=== PATIENT | male | born 1950 | race Caucasian/White ===

== ENCOUNTER 2018-03-18 16:54 | Emergency (ER) | payer OTHER ==
[2018-03-18 17:10] VITALS: BP 186/114
[2018-03-18] MEDS ORDERED: Levofloxacin TAB* 500 MG PO ONE (18:04)
--- NOTE | 2018-03-23 10:03 | UC ---
Complaint Male HPI - HPI Summary HPI Summary: c/o urinary frequency and urgency since yesterday with mild left scrotal pain after urination. Denies flank pain or fever, denies PMH of urolithiasis or prostatism. States he has usual nicturia about twice a night and before yesterday there was no urgency or burning. Denies penile discharge or recent intercourse - History of Current Complaint Chief Complaint: UCGU Stated Complaint: PAIN W/ URINATION Time Seen by Provider: 03/18/18 17:03 Hx Obtained From: Patient Onset/Duration: Sudden Onset, Lasting Days Timing: Constant Severity Initially: Mild Severity Currently: Mild Pain Intensity: 3 Pain Scale Used: 0-10 Numeric Location: Suprapubic Character: Burning Aggravating Factor(s): Voiding Alleviating Factor(s): Nothing Associated Signs And Symptoms: Positive: Negative - Risk Factors Testicular Torsion: Negative - Allergies/Home Medications Allergies/Adverse Reactions: Allergies Allergy/AdvReac Type Severity Reaction Status Date / Time atorvastatin [From Lipitor] Allergy Muscle Ache Verified 03/18/18 17:21 codeine Allergy Agitation Verified 03/18/18 17:21 ezetimibe [From Vytorin] Allergy See Comment Verified 03/18/18 17:21 fenofibrate [From Tricor] Allergy Muscle Ache Verified 03/18/18 17:21 hydrocodone Allergy Agitation Verified 03/18/18 17:21 Penicillins Allergy Stomach Verified 03/18/18 17:21 Cramps quinapril [From Accupril] Allergy Coughing Verified 03/18/18 17:21 rosuvastatin [From Crestor] Allergy Muscle Ache Verified 03/18/18 17:21 simvastatin [From Vytorin] Allergy See Comment Verified 03/18/18 17:21 PMH/Surg Hx/FS Hx/Imm Hx Previously Healthy: Yes Endocrine History: Dyslipidemia Cardiovascular History: Cardiac Disease, Hypertension - Surgical History Surgical History: Yes Surgery Procedure, Year, and Place: PTCA WITH FOUR STENTS - Family History Known Family History: Positive: Cardiac Disease, Hypertension - Social History Alcohol Use: Weekly Alcohol Amount: 2x Substance Use Type: None Smoking Status (MU): Former Smoker Type: Cigarettes Household Exposure Type: Cigarettes Review of Systems Constitutional: Negative Genitourinary: Dysuria, Frequency, Urgency All Other Systems Reviewed And Are Negative: Yes Physical Exam Triage Information Reviewed: Yes Appearance: Well-Appearing, No Pain Distress, Well-Nourished Vital Signs: Initial Vital Signs Temp 98.6 F 03/18/18 17:04 Pulse 74 03/18/18 17:04 Resp 16 03/18/18 17:04 BP 186/114 03/18/18 17:04 Pulse Ox 98 03/18/18 17:04 Vital Signs Reviewed: Yes Eyes: Positive: Conjunctiva Clear ENT: Positive: Hearing grossly normal, Pharynx normal Neck: Positive: Supple, Nontender, No Lymphadenopathy Respiratory: Positive: Chest non-tender, Lungs clear, Normal breath sounds, No respiratory distress Cardiovascular: Positive: RRR, No Murmur, Pulses Normal Abdomen Description: Positive: Nontender, No Organomegaly, Soft, Bruit Bowel Sounds: Positive: Present Male Genital Exam: Positive: Normal Genitalia, Normal Prostate, No Hernia Musculoskeletal: Positive: Strength Intact, ROM Intact, No Edema Complaint Male Course/Dx - Course Course Of Treatment: UTI, start levaquin as prescribed, continue oral hydration , follow up with urine culture, follow PCP in 2 weeks. HTN on medications, was asymptomatic for LIANG, dizziness, SOB, CP or palpitations, continue medications as previously prescriber. - Differential Dx/Diagnosis Provider Diagnoses: UTI. HTN Discharge - Sign-Out/Discharge Documenting (check all that apply): Discharge/Admit/Transfer - Discharge Plan Condition: Stable Disposition: HOME Prescriptions: Levofloxacin TAB* [Levaquin TAB*] 500 mg PO DAILY #7 tab Patient Education Materials: Levofloxacin (By mouth), Urinary Tract Infection in Men (ED) Referrals: Med Wilburn MD [Primary Care Provider] - - Billing Disposition and Condition Condition: STABLE Disposition: HOME
== END 2018-03-18 18:15 | disposition home or self-care (01) ==
LOC: UCEAST 16:54
DX: N39.0 Urinary tract infection, site not specified (principal); I10 Essential (primary) hypertension; Z88.5 Allergy status to narcotic agent; Z88.0 Allergy status to penicillin; Z88.8 Allergy status to other drugs, medicaments and biological substances; E78.5 Hyperlipidemia, unspecified; I11.9 Hypertensive heart disease without heart failure; Z87.891 Personal history of nicotine dependence
CPT/HCPCS: 81003; 87086; 99212; G0463

== ENCOUNTER 2018-04-02 09:16 | Day surgery (SDC) | payer OTHER ==
--- NOTE | 2018-03-30 12:28 | HP ---
CC: Dr. Med Wilburn; Dr. Jodi Shultz; Dr. Pederson ADMITTING HISTORY AND PHYSICAL: DATE OF ADMISSION: 04/02/18 ADMITTING DIAGNOSES: 1. Left hydronephrosis. 2. Obstructing calculus, left proximal ureter. PLANNED PROCEDURE: Left retrograde, left stent insertion, possible ureteroscopy (to be followed in n ear future by lithotripsy). SURGEON: Dr. Pederson. ADMITTING HISTORY AND PHYSICAL: Luciano Simon is a 67-year-old gentleman who has had discomfort i n the left groin area for the last month. He had been evaluated at the [facility] and [place] d been treated for presumed urinary tract infection, although the urine culture was negative. He has a history of renal calculi and because of the somewhat atypical symptoms and history of renal calcul i, I suspected referred pain secondary to a calculus in the ureter. Renal sonogram was obtained, whi ch revealed moderate left hydronephrosis with a fairly large approximately 10 mm calculus in the prox imal left ureter. He is now being brought in for left stent insertion to be followed at some point i n the near future by lithotripsy (may need to be off anticoagulants prior to lithotripsy depending on eventual location of the calculus). PAST MEDICAL HISTORY: Significant for: 1. Coronary artery disease (status post 4 coronary stents placed). 2. Renal calculi. 3. Hypertension. PAST SURGICAL HISTORY: Significant for left inguinal hernia repair and right ureteroscopy and laser in 2011. MEDICATIONS ON ADMISSION: 1. Metoprolol 50 mg twice a day. 2. Valsartan one tablet daily. 3. Praluent 75 mg a day. 4. Vitamin B12 1000 mcg a day. 5. Vitamin D3 2000 mcg a day. 6. Fish oil 120 mg daily. 7. Aspirin 81 mg a day. ALLERGIES AND INTOLERANCES: CODEINE, VICODIN, and certain STATIN, (PENICILLIN is listed as an allerg y but only causes stomach cramps, so not a true allergy). SOCIAL HISTORY: Smoking history; he is a former smoker who quit in 2006 with a 30- pack-year smoking history prior to that. REVIEW OF SYSTEMS: He denies any chest pain or shortness of breath. There is no history of diabetes mellitus or any other major systemic illness. PHYSICAL EXAMINATION GENERAL: Reveals a pleasant, mildly uncomfortable-appearing middle-aged gentleman. VITAL SIGNS: Blood pressure is 144/86, pulse 77 per minute and regular, temperature 96.7, oxygen sat uration 99% on room air. LUNGS: Clear bilaterally. CARDIOVASCULAR: Regular rate and rhythm. S1, S2. ABDOMEN: Soft with mild left flank tenderness. RECTAL: Testicles are descended bilaterally and are normal with a left varicocele noted. IMPRESSION: I reviewed the imaging studies and had a detailed discussion with Mr. Aurora malcolm ng the diagnosis of an obstructing left proximal ureteral calculus. The plan is for urgent left sten t insertion in the next few days to be followed by shock wave lithotripsy in the near future. [id number]/[facility] #: [id number]
[~2018-04-02 09:16] MED LIST: Buffered Lidocaine 0.9% SYRIN* 5 ML/SYR SYRINGE INTRADERM ONE
[2018-04-02] MEDS ORDERED: Buffered Lidocaine 0.9% SYRIN* 5 ML/SYR SYRINGE ONE (09:42)
[2018-04-02] MEDS ORDERED: Levofloxacin 500 MG IVPREMIX(* 500 MG/100 ML BAG IVPB ONE (10:03)
[2018-04-02] MEDS ORDERED: Famotidine IV* 10 MG/ML 2 ML (20 mg) ONE (10:09)
[2018-04-02] MEDS ORDERED: fentaNYL* 50 MCG/ML 2 ML VIAL (100 MCG VIAL) IV PRN (10:33)
[2018-04-02] MEDS ORDERED: HYDROmorphone INJ* 1 MG/ML CARPUJECT SYRINGE IV PRN (10:33)
[2018-04-02] MEDS ORDERED: Acetaminophen TAB* 325 MG PO PRN (10:33)
[2018-04-02] MEDS ORDERED: Ondansetron INJ* 2 MG/ML VIAL IV PRN (10:33)
[2018-04-02] MEDS ORDERED: Naloxone* 0.4 MG/ML 1 ML VIAL IV PRN (10:33)
[2018-04-02] MEDS ORDERED: Ibuprofen TAB* 600 MG PO PRN (10:33)
[2018-04-02] MEDS ORDERED: Propofol* 10 MG/ML 20 ML BTL IV PUSH ONE (10:35)
[2018-04-02] MEDS ORDERED: Lidocaine 2% PF * 5 ML VIAL ONE (10:35)
[2018-04-02] MEDS ORDERED: fentaNYL* 50 MCG/ML 2 ML VIAL (100 MCG VIAL) ONE (10:36)
[2018-04-02] MEDS ORDERED: Midazolam* 1 MG/ML 2 ML VIAL (2 MG) ONE (10:36)
[2018-04-02] MEDS ORDERED: Iohexol 180 (CONTRAST) 10 ML SDV IV ONE (11:52)
[2018-04-02] MEDS ORDERED: Ketorolac INJ* 30 MG/ML 1 ML VIAL ONE (12:11)
[2018-04-02] MEDS ORDERED: Tamsulosin CAP* 0.4 MG ONE (13:45)
[2018-04-02] MEDS ORDERED: hydrALAZINE IV* 20 MG/ML VIAL ONE (14:01)
--- NOTE | 2018-04-02 14:08 | RAD ---
INDICATION: Left ureteral stent insertion COMPARISONS: None relevant TECHNIQUE: Fluoroscopy was provided for a retrograde pyelogram and stent placement. Total fluoroscopy time is: 8 seconds FINDINGS: Spot images symmetric contrast within the renal collecting system, which is dilated. A ureteral stent is noted. IMPRESSION: FLUOROSCOPY WAS PROVIDED FOR A RETROGRADE PYELOGRAM AND STENT PLACEMENT CPT II Codes: G9500
[2018-04-02 14:53] VITALS: BP 169/99
--- NOTE | 2018-04-02 15:47 | RAD ---
INDICATION: Postoperative COMPARISON: Retrograde pyelogram April 02, 2018 TECHNIQUE: A single view of the abdomen is submitted. FINDINGS: Bones: There are no acute bony findings. Soft tissues: The soft tissues appear normal. The psoas margins are sharp. Bowel gas pattern: Normal Calcifications: 1.3 cm calcination pulmonary proximal course of the left ureteral stent. There are multiple phleboliths. Other: Left ureteral stent in expected position. IMPRESSION: PROXIMAL LEFT URETERAL CALCULUS. LEFT URETERAL STENT.
--- NOTE | 2018-04-03 08:46 | OP ---
CC: Dr. Med Wilburn * DATE OF OPERATION: 04/02/18 - [facility] DATE OF : 54 SURGEON: Saúl Pederson MD ANESTHESIOLOGIST: Dawn Guillen MD ANESTHESIA: General. PRE-OP DIAGNOSES: 1. Left hydronephrosis. 2. Calculus, left proximal ureter. POST-OP DIAGNOSES: 1. Left hydronephrosis. 2. Calculus, left proximal ureter. OPERATIVE PROCEDURE: Cystoscopy, left retrograde pyelogram, left ureteral calculus manipulation, and left stent insertion. INDICATIONS: Luciano Simon is a 67-year-old gentleman, who was evaluated for an obstructing calculus in the left proximal ureter. He is being brought in for left stent insertion to be followed in the near future by lithotripsy. COMPLICATIONS: None. STENT USED: 6-American stent, left ureter. POSTOPERATIVE CONDITION: Stable. DESCRIPTION OF PROCEDURE: After induction of general anesthesia, the patient was placed in dorsal lithotomy position. Sequential compression devices were in place and functioning. Initial cystoscopy revealed a normal-appearing urethra, a mildly enlarged prostate, and a normal-appearing bladder. A guidewire was introduced into the left ureter. Retrograde pyelogram revealed left hydronephrosis. The calculus could be seen at the level of the mid to proximal left ureter and an open-ended catheter was advanced and the ureter was found to be fairly narrow. The open-ended catheter was advanced to the level of the calculus and after the calculus was manipulated proximally, the open- ended catheter could then be advanced into the proximal collecting system. A 6- American stent was then introduced and positioned under fluoroscopy with good proximal and distal positioning obtained. The bladder was emptied. The patient tolerated the procedure satisfactorily and was transferred back to the recovery area in stable condition. [id number]/[facility] #: [id number] MTDD
== END 2018-04-02 15:13 | disposition home or self-care (01) ==
LOC: OR 09:16
PROVIDERS: ATTEND Urology
DX: N13.2 Hydronephrosis with renal and ureteral calculous obstruction (principal); I25.10 Atherosclerotic heart disease of native coronary artery without angina pectoris; Z95.5 Presence of coronary angioplasty implant and graft; I10 Essential (primary) hypertension; I25.2 Old myocardial infarction; Z87.891 Personal history of nicotine dependence; Z68.33 Body mass index [BMI] 33.0-33.9, adult
CPT/HCPCS: 74018; 74420; C1876; J0360; J1885; J1956; J2250; J2704; J3010

== ENCOUNTER 2018-04-09 11:16 | Day surgery (SDC) | payer MEDICARE, OTHER ==
[~2018-04-09 11:16] MED LIST changes: +Sodium Citrate/Citric Acid* 15 ML UDC PO ONE
[2018-04-09] MEDS ORDERED: cefTRIAXone(*) 1 GM ADVAN/BAG ONE ×2 (12:37→14:59)
[2018-04-09] MEDS ORDERED: Sodium Citrate/Citric Acid* 15 ML UDC ONE (12:37)
[2018-04-09] MEDS ORDERED: Buffered Lidocaine 0.9% SYRIN* 5 ML/SYR SYRINGE ONE (12:37)
--- NOTE | 2018-04-09 13:06 | RAD ---
HISTORY: Shock wave lithotripsy COMPARISONS: April 02, 2018 VIEWS: Frontal views of the abdomen. FINDINGS: BOWEL: There is a nonspecific bowel gas pattern, with nondilated small bowel gas noted. CALCULI: There is a 0.8 cm calculus of the proximal left ureter. Small calculi are noted overlying the renal parenchymal shadow. There is a 1 cm density overlying the left renal parenchymal shadow which may be related to the gastrointestinal tract as this is not clearly seen on the previous examination. A left ureteral stent is noted. BONES AND SOFT TISSUES: Mild degenerative changes are noted. OTHER FINDINGS: The lung bases are clear. There is no subphrenic gas. IMPRESSION: LEFT NEPHROLITHIASIS WITH A LEFT URETERAL STENT.
[2018-04-09] MEDS ORDERED: Midazolam* 1 MG/ML 2 ML VIAL (2 MG) ONE (14:56)
[2018-04-09] MEDS ORDERED: Propofol* 10 MG/ML 20 ML BTL IV PUSH ONE (14:56)
[2018-04-09] MEDS ORDERED: Lidocaine 2% PF * 5 ML VIAL ONE (14:56)
[2018-04-09] MEDS ORDERED: Naloxone* 0.4 MG/ML 1 ML VIAL IV PRN (15:19)
[2018-04-09] MEDS ORDERED: Labetalol IV* 5 MG/ML 20 ML VIAL ONE (16:48)
[2018-04-09 17:53] VITALS: BP 136/80
--- NOTE | 2018-04-09 18:28 | RAD ---
Indication: LEFT ureteral calculus. Comparison: April 09, 2018 Technique: Supine view of the abdomen. Report: Unremarkable bowel gas pattern. Moderate stool in the colon without significant rectal distension. 0.9 cm maximum dimension stone visualized at the proximal LEFT ureter adjacent to the ureteral stent at the cephalocaudal level of the L3-L4 disc space without significant change. 0.3 cm stone inferior pole LEFT kidney without change. Pelvic phleboliths noted. Unremarkable soft tissue contours. IMPRESSION: 0.9 cm maximum dimension stone visualized at the proximal LEFT ureter adjacent to the ureteral stent at the cephalocaudal level of the L3-L4 disc space without significant change. 0.3 cm stone inferior pole LEFT kidney without change.
--- NOTE | 2018-04-10 10:41 | OP ---
DATE OF OPERATION: 04/09/18 - [facility] DATE OF : [birth year] - Age: 67 years, male. SURGEON: Saúl Pederson MD ANESTHESIOLOGIST: Dr. Rios. ANESTHESIA: General. PRE-OP DIAGNOSIS: Calculus, left proximal ureter. POST-OP DIAGNOSIS: Calculus, left proximal ureter. OPERATIVE PROCEDURE: Shockwave lithotripsy of calculus, left ureter. COMPLICATIONS: None. POSTOPERATIVE CONDITION: Stable. INDICATIONS: Luciano Simon is a 67-year-old gentleman who was evaluated for an obstructing calculus in the left proximal ureter. He underwent urgent left stent insertion and is now being brought in for shockwave lithotripsy. Because of the large size of the calculus, I have explained to him that he may require more than one procedure and may well require laser lithotripsy as a followup procedure depending on the degree of fragmentation. DESCRIPTION OF THE PROCEDURE: After induction of general anesthesia, the patient was placed on lithotripsy table in supine position. The calculus in the proximal left ureter was localized using fluoroscopy. Shockwave lithotripsy was commenced at a rate of 90 shocks per minute. Periodic fluoroscopy revealed adequate localization and a total of 3000 shocks were delivered. It is difficult to assess the degree of fragmentation due to the presence of a large calculus in the proximal left ureter, which does not have much room to expand, and the patient will later on have a followup imaging to truly assess the degree of fragmentation before deciding on whether or not he will ready for stent removal. The patient tolerated the procedure satisfactorily and was transferred back to recovery area in stable condition. [id number]/[facility] #: [id number] [facility]
== END 2018-04-09 18:31 | disposition home or self-care (01) ==
LOC: OR 11:16
PROVIDERS: ATTEND Urology
DX: N20.1 Calculus of ureter (principal); Z87.891 Personal history of nicotine dependence; I25.10 Atherosclerotic heart disease of native coronary artery without angina pectoris; Z95.5 Presence of coronary angioplasty implant and graft; K21.9 Gastro-esophageal reflux disease without esophagitis; I10 Essential (primary) hypertension; I86.1 Scrotal varices
CPT/HCPCS: 74018; A9270-GY; J0696; J2250; J2704

== ENCOUNTER 2018-05-10 05:58 | Day surgery (SDC) | payer OTHER ==
--- NOTE | 2018-05-08 20:38 | HP ---
CC: Dr. Wilburn; Dr. Shultz* ADMITTING HISTORY AND PHYSICAL: DATE OF ADMISSION: 05/10/18 ADMITTING DIAGNOSIS: Calculus, left proximal ureter. PLANNED PROCEDURE: Left ureteroscopy, possible laser and stent insertion. HISTORY OF PRESENT ILLNESS: Luciano Simon is a 67-year-old gentleman who had previously undergone left stent insertion and shock wave lithotripsy for a large obstructing calculus in the left proximal ureter. He had subsequently undergone stent removal and then had a followup x-ray, which showed a fairly large fragment persisting in the area of the left proximal ureter and is now being brought in for management of the same. PAST MEDICAL HISTORY: Significant for: 1. Recurrent renal calculi. 2. Coronary artery disease (has multiple coronary stents). 3. Hypertension. MEDICATIONS: On admission: 1. Valsartan one tablet daily. 2. Praluent 75 mg a day. 3. Metoprolol 50 mg twice a day. 4. Aspirin 81 mg a day. 5. Supplements. ALLERGIES AND INTOLERANCES: VICODIN, CODEINE, and certain STATINS. PHYSICAL EXAMINATION GENERAL: Reveals a pleasant, anxious-appearing gentleman. VITAL SIGNS: Blood pressure is 138/84, pulse 90 per minute, oxygen saturation 96% on room air. LUNGS: Clear bilaterally. CARDIOVASCULAR: Regular rate and rhythm. S1, S2. ABDOMEN: Soft with mild left flank tenderness. IMPRESSION: A 67-year-old gentleman with a left persistent calculus or calculus fragment in the area of the left proximal ureter after stent removal about 3 weeks ago. PLAN: Left ureteroscopy, possible laser and stent insertion. [id number]/[facility] #: [id number] [facility]ITALPhil
[~2018-05-10 05:58] MED LIST changes: +Gentamicin ADULT (*) 160 MG in NS 0.9% 100 ML* 100 ML IVPB ONE; -Sodium Citrate/Citric Acid* 15 ML UDC PO ONE
[2018-05-10] MEDS ORDERED: cefTRIAXone(*) 2 GM ADDV.VIAL IVPB ONE (06:19)
[2018-05-10] MEDS ORDERED: Buffered Lidocaine 0.9% SYRIN* 5 ML/SYR SYRINGE ONE (06:19)
[2018-05-10] MEDS ORDERED: Iohexol 180 (CONTRAST) 10 ML SDV IV ONE (07:21)
[2018-05-10] MEDS ORDERED: fentaNYL* 50 MCG/ML 2 ML VIAL (100 MCG VIAL) ONE ×3 (07:29→07:55)
[2018-05-10] MEDS ORDERED: Midazolam* 1 MG/ML 2 ML VIAL (2 MG) ONE (07:30)
[2018-05-10] MEDS ORDERED: Midazolam* 1 MG/ML 5 ML VIAL (5 MG) ONE (07:38)
[2018-05-10] MEDS ORDERED: Propofol* 10 MG/ML 20 ML BTL IV PUSH ONE (07:41)
[2018-05-10] MEDS ORDERED: Famotidine IV* 10 MG/ML 2 ML (20 mg) ONE (07:41)
[2018-05-10] MEDS ORDERED: Dexamethasone IV* 4 MG/ML 1 ML (4 MG) ONE (07:41)
[2018-05-10] MEDS ORDERED: Lidocaine 2% PF * 5 ML VIAL ONE (07:42)
[2018-05-10] MEDS ORDERED: cefTRIAXone(*) 2 GM in NS 0.9% 100 ML* 100 ML IVPB ONE (08:00)
[2018-05-10] MEDS ORDERED: Gentamicin IVPREMIX 160 MG/160 ML BAG IV ONE (08:00)
[2018-05-10] MEDS ORDERED: DiMENhydriNATE IV* 50 MG/ML VIAL IV PUSH PRN (08:21)
[2018-05-10] MEDS ORDERED: PROCHLORPERAZINE INJ 5 MG/ML 2 ML VIAL IV PRN (08:21)
[2018-05-10] MEDS ORDERED: Ondansetron ODT TAB* 4 MG PO PRN (08:21)
[2018-05-10] MEDS ORDERED: fentaNYL* 50 MCG/ML 2 ML VIAL (100 MCG VIAL) IV PRN (08:21)
[2018-05-10] MEDS ORDERED: Naloxone* 0.4 MG/ML 1 ML VIAL IV PRN (08:21)
[2018-05-10] MEDS ORDERED: Acetaminophen TAB* 325 MG PO PRN (08:21)
[2018-05-10] MEDS ORDERED: Acetaminophen IV 1GM/100ML * 1,000 MG/100 ML VIAL IVPB PRN (08:21)
[2018-05-10] MEDS ORDERED: Furosemide IV* 10 MG/ML 2 ML VIAL (20 MG) ONE (08:23)
[2018-05-10] MEDS ORDERED: EPHEDrine (Pressors)* 50 MG/ML VIAL ONE (08:27)
[2018-05-10 09:33] VITALS: BP 153/94
--- NOTE | 2018-05-10 10:31 | RAD ---
INDICATION: Left ureteral stent insertion, left ureteroscopy. COMPARISON: Comparison is made with a prior KUB from May 08, 2018. TECHNIQUE: 10 seconds of intermittent fluoroscopic guidance were provided and 5 spot films of the abdomen were centered on the left side. FINDINGS: There is partial opacification of the left renal collecting system. There is dilatation of the renal pelvis and calyces consistent with hydronephrosis. Subsequently there is placement of a double-J stent catheter on the left side which demonstrates normal course. IMPRESSION: INTRAOPERATIVE CONTROL FILMS. CPT II Codes: G9500
--- NOTE | 2018-05-11 09:59 | OP ---
CC: Dr. Med Wilburn * DATE OF OPERATION: 05/10/18 - [facility] DATE OF : 54 SURGEON: Saúl Pederson MD ANESTHESIOLOGIST: Dr. Rosario. ANESTHESIA: General. PRE-OP DIAGNOSES: 1. Left hydronephrosis. 2. Calculus, left proximal ureter. POST-OP DIAGNOSES: 1. Left hydronephrosis. 2. Calculus, left proximal ureter. OPERATIVE PROCEDURE: Cystoscopy, left retrograde pyelogram, left ureteroscopy, laser lithotripsy of large left ureteral calculus, left pyeloscopy, and left stent insertion. COMPLICATIONS: None. STENT USED: 7-Puerto Rican stent, left ureter. POSTOPERATIVE CONDITION: Stable. INDICATIONS: Luciano Simon is a 67-year-old gentleman who had initially undergone stent insertion and shock wave lithotripsy for a large obstructing calculus in the left proximal ureter. This has resulted in partial fragmentation, but he still had a fairly large fragment in the left proximal ureter. OPERATIVE FINDINGS: Large (10 to 12 mm) calculus left mid to proximal ureter with left hydronephrosis. DESCRIPTION OF PROCEDURE: After induction of general anesthesia, the patient was placed in dorsal lithotomy position. Sequential compression devices were in place and functioning. Initial cystoscopy revealed a normal-appearing urethra , moderately enlarged prostate. The bladder was examined and appeared unremarkable. A guidewire was introduced into the left ureter. Retrograde pyelogram revealed left hydronephrosis. A 6-Puerto Rican semi-rigid ureteroscope was introduced and advanced under direct vision. At the junction of the mid to proximal left ureter, a fairly large calculus was noted to be impacted. Using a 550-micron Holmium laser, this was successfully broken up into multiple fragments. All of the sizable fragments were removed. Some other fragments migrated proximally and the ureteroscope was advanced further into the renal pelvis and pyeloscopy was performed. A few of the larger fragments were picked up from the renal pelvis using a 3 Prong grasper and brought back down into the ureter where they were broken up again with the laser fiber. At the end of the procedure, there were few small remaining fragments but no sizable remaining fragments and a 7-Puerto Rican stent was introduced and positioned under fluoroscopy with good proximal and distal positioning obtained. The bladder was emptied. The patient tolerated the procedure satisfactorily and was transferred back to the recovery area in stable condition. [id number]/[facility] #: [id number] MTDD
--- NOTE | 2018-05-14 10:51 | RAD ---
INDICATION: Left-sided nephrolithiasis. Left ureteral stent COMPARISON: KUB May 08, 2018 TECHNIQUE: A single view of the abdomen is submitted. FINDINGS: Bones: There are no acute bony findings. Soft tissues: The soft tissues appear normal. The psoas margins are sharp. Bowel gas pattern: Normal Calcifications: There is bilateral nephrolithiasis. There is interval fragmentation of the dominant left-sided calculus. There is a ureteral stent in expected position. Other: None IMPRESSION: FRAGMENTATION OF LEFT SIDED UROLITHIASIS. LEFT URETERAL STENT.
== END 2018-05-10 09:58 | disposition home or self-care (01) ==
LOC: OR 05:58
PROVIDERS: ATTEND Urology
DX: N20.1 Calculus of ureter (principal); N13.30 Unspecified hydronephrosis; I25.10 Atherosclerotic heart disease of native coronary artery without angina pectoris; I10 Essential (primary) hypertension; Z79.82 Long term (current) use of aspirin; Z88.5 Allergy status to narcotic agent; Z88.8 Allergy status to other drugs, medicaments and biological substances
CPT/HCPCS: 74018; 74420; 82365; 88300; C1876; J0696; J1100; J1580; J1940; J2250; J2704; J3010

== ENCOUNTER 2018-12-31 08:25 | Day surgery (SDC) | payer OTHER ==
--- NOTE | 2018-12-27 20:09 | HP ---
CC: Dr. Med Wilburn; Dr. Shultz * ADMITTING HISTORY AND PHYSICAL: DATE OF ADMISSION: 12/31/18 ADMITTING DIAGNOSIS: Right renal calculus. PLANNED PROCEDURE: Shockwave lithotripsy of right renal calculus. SURGEON: Dr. Pederson. HISTORY OF PRESENT ILLNESS: Luciano Simon is a 68-year-old gentleman with a history of bilateral renal calculi. He was recently noted to have a 7- to 8-mm calculus in the right kidney and is now being brought in for shockwave lithotripsy. PAST MEDICAL HISTORY: Significant for: 1. Coronary artery disease. 2. History of paroxysmal atrial fibrillation. 3. History of migraines. 4. Gastroesophageal reflux disease. 5. Mixed hyperlipidemia. 6. Essential hypertension. MEDICATIONS ON ADMISSION: 1. Praluent 75 mg/mL, 1 mL subcu every 2 weeks. 2. Pepcid 20 mg daily. 3. Metoprolol 50 mg daily. 4. Valsartan/hydrochlorothiazide 160/25 one tablet daily. 5. Klor-Con 10 mEq 1 tablet daily. 6. 20 mg every other day. 7. Aspirin 81 mg daily. 8. Fish oil 1200 mg. ALLERGIES AND INTOLERANCES: HYDROCODONE, ACCUPRIL, VYTORIN, LIPITOR, , and CODEINE. PHYSICAL EXAMINATION GENERAL: Reveals a pleasant middle-aged gentleman. VITAL SIGNS: Blood pressure is 140/90, pulse 96 per minute, temperature 97, oxygen saturation 98% on room air. LUNGS: Clear bilaterally. CARDIOVASCULAR: Regular rate and rhythm. S1, S2. ABDOMEN: Soft without masses. IMPRESSION: A 68-year-old gentleman with right renal calculus. I have discussed the procedure of lithotripsy including possible risks of bleeding, infection, incomplete fragmentation. He understands and wishes to proceed as planned. PLAN: Plan is shockwave lithotripsy of right renal calculus. [id number]/[facility] #: [id number] MTDD
[~2018-12-31 08:25] MED LIST changes: -Buffered Lidocaine 0.9% SYRIN* 5 ML/SYR SYRINGE INTRADERM ONE; +Buffered Lidocaine 1% SYRIN* 1 ML/SYRINGE INTRADERM ONE; +Dexamethasone IV* 4 MG/ML 1 ML (4 MG) ONE; -Gentamicin ADULT (*) 160 MG in NS 0.9% 100 ML* 100 ML IVPB ONE; +Ketorolac INJ* 30 MG/ML 1 ML VIAL ONE; +Lactated Ringers 1000 ML Bag* 1,000 ML IV SCH; +Lidocaine 2% PF * 5 ML VIAL ONE; +Midazolam* 1 MG/ML 5 ML VIAL (5 MG) ONE; +Ondansetron INJ* 2 MG/ML VIAL ONE; +Propofol* 10 MG/ML 20 ML BTL ONE; +cefTRIAXone(*) 2 GM ADDV.VIAL IVPB ONE; +fentaNYL* 50 MCG/ML 2 ML VIAL (100 MCG VIAL) ONE
[2018-12-31] MEDS ORDERED: Phenylephrine INJ* 10 MG/ML 1 ML VIAL (10 MG) ONE (10:02)
[2018-12-31] MEDS ORDERED: Naloxone* 0.4 MG/ML 1 ML VIAL IV PRN (10:07)
[2018-12-31] MEDS ORDERED: fentaNYL* 50 MCG/ML 2 ML VIAL (100 MCG VIAL) IV PRN (10:07)
[2018-12-31] MEDS ORDERED: Ondansetron INJ* 2 MG/ML VIAL IV PRN (10:07)
[2018-12-31] MEDS ORDERED: Furosemide IV* 10 MG/ML 2 ML VIAL (20 MG) ONE (11:03)
[2018-12-31] MEDS ORDERED: fentaNYL* 50 MCG/ML 2 ML VIAL (100 MCG VIAL) ONE (11:39)
--- NOTE | 2018-12-31 12:28 | OP ---
CC: Dr. Med Wilburn; Dr. Saúl Pederson OPERATIVE REPORT: DATE OF OPERATION: 12/31/18 DATE OF : 54 SURGEON: Saúl Pederson MD ANESTHESIOLOGIST: Dr. Pompa ANESTHESIA: General. PRE-OP DIAGNOSIS: Right renal calculus. POST-OP DIAGNOSIS: Right renal calculus. OPERATIVE PROCEDURE: Shockwave lithotripsy of right renal calculus. INDICATIONS: Luciano Simon is a 68-year-old gentleman, who was recently seen and noted to have an approximately 8 mm calculus in the right kidney. He is now being brought in for lithotripsy. COMPLICATIONS: None. POSTOPERATIVE CONDITION: Stable. DESCRIPTION OF PROCEDURE: After induction of general anesthesia, the patient was placed on lithotrip sy table in the supine position. The calculus in the mid to lower pole was identified using fluorosc opy. Shockwave lithotripsy was commenced at a rate of 60 shocks per minute. After the initial 300 s hocks, there was a pause in lithotripsy for several minutes in an effort to minimize any potential tr auma to the kidney. Lithotripsy was then resumed and periodic imaging revealed good localization and fragmentation. A total of 2000 shocks were administered. The patient tolerated the procedure satisfactorily and was transferred back to the recovery area in s table condition and my plan is to obtain a followup imaging study in a few months to assess for degre e of fragmentation and clearance of the fragments. [id number]/[facility] #: [id number]
[2018-12-31 12:41] VITALS: BP 150/95
== END 2018-12-31 12:45 | disposition home or self-care (01) ==
LOC: OR 08:25
PROVIDERS: ATTEND Urology
DX: N20.0 Calculus of kidney (principal); I25.10 Atherosclerotic heart disease of native coronary artery without angina pectoris; I25.2 Old myocardial infarction; Z95.5 Presence of coronary angioplasty implant and graft; I10 Essential (primary) hypertension; I48.0 Paroxysmal atrial fibrillation; K21.9 Gastro-esophageal reflux disease without esophagitis; E78.2 Mixed hyperlipidemia
CPT/HCPCS: 74018; J0696; J1100; J1885; J1940; J2250; J2405; J2704; J3010

== ENCOUNTER 2022-02-09 13:53 | Observation (INO) ==
[2022-02-09] MEDS ORDERED: NS 0.9% 1000 ml BAG 1,000 ML IV ONE (14:19)
[2022-02-09] MEDS ORDERED: Ondansetron 4 mg VIAL 2 MG/ML 2 ml VIAL IV ONE (14:20)
[2022-02-09] MEDS ORDERED: Iodixanol (CONTRAST) 320 MG/ML 100 ML SDV IV ONE (14:20)
[2022-02-09] MEDS ORDERED: Morphine 4 MG/ML VIAL (1 ml) IV ONE ×3 (14:20→18:00)
[2022-02-09 14:31] LABS: ABS Eosinophils 0.1 10^3/ul (0-0.6); ABS Lymphocytes 0.9 10^3/ul (1.0-4.8); ABS Monocytes 0.8 10^3/ul (0-0.8); ABS Neutrophils 6.1 10^3/ul (1.5-7.7); Eosinophil % 1.1 %; Hematocrit 48 % (42-52); Hemoglobin 16.7 g/dL (14.0-18.0); Lymphocyte % 11.8 %; Mean Corpuscular HGB Conc 35 g/dL (31-36); Mean Corpuscular Hemoglobin 33 pg (27-31); Mean Corpuscular Volume 95 fL (80-94); Mean Platelet Volume 8.4 fL (7.4-10.4); Nucleated Red Blood Cells % 0.1; Platelet Count 288 10^3/uL (150-450); Red Blood Count 5.12 10^6 /uL (4.18-5.48); Red Cell Distribution Width 15 % (10-15)
[2022-02-09 14:41] LABS: INR 1.14 (0.86-1.15)
[2022-02-09 14:44] LABS: High Sens Troponin Baseline 12 pg/mL (<20)
[2022-02-09] MEDS ORDERED: Famotidine IV 10 MG/ML 2 ml VIAL (20 mg) IV SLOW PU ONE (14:47)
[2022-02-09 15:25] LABS: Albumin 3.9 g/dL (3.2-5.2); CO2 Carbon Dioxide 28 mmol/L (22-32); Calcium 9.6 mg/dL (8.6-10.3); Chloride 103 mmol/L (101-111); Sodium 139 mmol/L (135-145)
[2022-02-09 15:31] LABS: Anion Gap 8 mmol/L (2-11)
[2022-02-09 15:32] LABS: ALT 20 U/L (7-52); Albumin/Globulin Ratio 1.6 (1-3); Alkaline Phosphatase 55 U/L (35-149); Blood Urea Nitrogen 13 mg/dL (6-24); Globulin 2.4 g/dL (2-4); Glucose 128 mg/dL (70-100); Lipase 10 U/L (11.0-82.0); Total Protein 6.3 g/dL (6.4-8.9); eGFR CKD-EPI 79.6 (>60)
[2022-02-09 16:38] LABS: Potassium Redraw 3.9 mmol/L (3.5-5.0)
[2022-02-09] MEDS ORDERED: Al Hydrox/Mg Hydrox/Simet LIQ 30 ML UDC PO ONE (19:02)
[2022-02-09] MEDS ORDERED: Enoxaparin 40 MG/0.4 ML SYR SUBCUT SCH (21:00)
[2022-02-10 06:44] LABS: INR 1.14 (0.86-1.15)
[2022-02-10 06:51] LABS: ABS Basophils 0.1 10^3/ul (0-0.2); ABS Eosinophils 0.1 10^3/ul (0-0.6); ABS Lymphocytes 0.4 10^3/ul (1.0-4.8); ABS Monocytes 1.4 10^3/ul (0-0.8); ABS Neutrophils 11.4 10^3/ul (1.5-7.7); Eosinophil % 0.9 %; Hematocrit 48 % (42-52); Hemoglobin 16.3 g/dL (14.0-18.0); Lymphocyte % 3.2 %; Mean Corpuscular HGB Conc 34 g/dL (31-36); Mean Corpuscular Hemoglobin 32 pg (27-31); Mean Corpuscular Volume 95 fL (80-94); Mean Platelet Volume 8.7 fL (7.4-10.4); Platelet Count 235 10^3/uL (150-450); Red Blood Count 5.05 10^6 /uL (4.18-5.48); Red Cell Distribution Width 15 % (10-15); White Blood Count 13.4 10^3/uL (3.5-10.8)
[2022-02-10 07:12] LABS: Calcium 8.6 mg/dL (8.6-10.3); HDL Cholesterol 53.6 mg/dL; Potassium 3.9 mmol/L (3.5-5.0); eGFR CKD-EPI 97.7 (>60)
[2022-02-10] MEDS ORDERED: Regadenoson 0.4 MG/5 ML SYRINGE ONE (11:49)
[2022-02-10 16:06] VITALS: BP 131/64
== END 2022-02-10 16:45 | disposition home or self-care (01) ==
LOC: ED 13:53 → EDHOLD 13:53 → MEDTELE 20:27
PROVIDERS: ADMIT Nurse Practitioner; ATTEND Internal Medicine